=== PATIENT | female | born 1935 | race Caucasian/White ===

== ENCOUNTER → 2021-02-12 | Outpatient (CLI) | payer MEDICARE ==
--- NOTE | 2021-02-13 09:21 | CT ---
EXAMINATION TYPE: CT abdomen wo/w con DATE OF EXAM: 02/12/2021 COMPARISON: NONE HISTORY: 85-year-old female Generalized abdominal pain and constipation. Abnormal liver function labs . R94.5, R18.04, K59.00, R14.0. Left lower quadrant abdominal pain. Weight loss. TECHNIQUE: Contiguous axial scanning of the abdomen before and after administration of 100 ml Isovue 300 IV contrast. Delayed images through the kidneys and coronal/sagittal reconstructions performed. CT DLP: 423.2 mGycm Automated exposure control for dose reduction was used. FINDINGS: Heart is borderline to mildly enlarged with mild LAD coronary artery calcifications. Ectatic aortic root at 3.9 cm with mild aortic valvular calcifications. Mild mitral annular calcifications as well. Moderate atherosclerotic calcifications throughout the visualized lower thoracic and abdominal aorta. There are trace right greater than left pleural effusions noted. Some patchy posterior right basilar opacity, likely atelectasis. The kidneys show scattered striated nephrograms, most pronounced on the delayed kidney images. Liver borderline enlarged at 17.2 cm. Portal venous system is patent. No biliary ductal dilatation se en. Gallbladder, adrenal glands, spleen, and atrophic pancreas show no gross abnormality. No dilated small bowel, free fluid, or free air. Since the moderate stool throughout the colon. The v isualized pericolonic inflammatory change. The pelvis is not imaged. No definite mesenteric or retroperitoneal lymphadenopathy. Bones: Osteopenia. Degenerated dextroconvex curvature of the lumbar spine. Moderate to advanced disc/ endplate degenerative changes L3-S1 levels with hypertrophic facet arthropathy and Baastrup's disease . Grade 1 anterolisthesis L3-L4 and L4-L5 and nearly grade 2 anterolisthesis L5-S1. IMPRESSION: 1. MILD CARDIOMEGALY WITH TRACE PLEURAL EFFUSIONS. CORRELATE FOR FLUID OVERLOAD STATE OR POSSIBLE MIL D CHF. 2. SCATTERED STRIATED NEPHROGRAMS INVOLVING BOTH KIDNEYS, LEFT GREATER THAN RIGHT. FINDINGS MAY REFLE CT PREVIOUS, NUMEROUS SMALL CORTICAL INFARCTS. CORRELATE TO EXCLUDE ACUTE BILATERAL PYELONEPHRITIS, A TN, AND HYPOTENSION. 3. MODERATE STOOL BURDEN. PELVIS NOT IMAGED. 4. 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
== END | disposition home or self-care (01) ==
LOC: RADCTMAIN 17:24
PROVIDERS: ATTEND Family Medicine
DX: R93.421 Abnormal radiologic findings on diagnostic imaging of right kidney (principal); R93.422 Abnormal radiologic findings on diagnostic imaging of left kidney
CPT/HCPCS: 82565; 84520; 74170; 36415; Q9967